=== PATIENT | female | born 1945 | race Caucasian/White ===

== ENCOUNTER 2016-11-17 17:48 | Observation (INO) | payer MEDICARE, OTHER ==
[~2016-11-17 17:48] MED LIST: ISOVUE-370 76%-LOCM 1 ML ONE
[2016-11-17 18:51] LABS: #Eosinphils 0.1 thou/uL (0.0-0.7); #Lymphocytes 0.9 thou/uL (1.20-3.40); #Monocytes 0.5 thou/uL (0.11-0.59); #Neutrophils 8.6 thou/uL (1.40-6.50); %Basophils 0.2 % (0.0-1.0); %Eosinophils 0.6 % (0.0-10.0); %Lymphocytes 8.4 % (21.0-51.0); Hematocrit 44.8 % (36.0-47.0); Mean Platelet Volume 7.3 fL (7.4-10.4); Red Blood Cell (RBC) Count 4.64 mill/uL (4.20-5.40); White Blood Cell (WBC) Count 10.1 thou/uL (4.8-10.8)
[2016-11-17 18:57] LABS: PTT 26.1 SEC (22.9-36.1); Prothrombin Time 14.2 SEC (12.0-14.7)
[2016-11-17 19:15] LABS: ALT (SGPT) 61 U/L (8-55); AST (SGOT) 67 U/L (5-34); Alkaline Phosphatase 97 U/L (40-150); Anion Gap 16 mmol/L (10-20); BUN (Urea Nitrogen) 18 mg/dL (9.8-20.1); Bilirubin, Total 1.4 mg/dL (0.2-1.2); CK (CPK) 113 U/L (29-168); Calc. Creatinine Clearance 0 mL/min (70-130); Calcium 9.8 mg/dL (7.8-10.44); Carbon Dioxide 29 mmol/L (23-31); Chloride 100 mmol/L (98-107); Estimated GFR-MDRD 61; Globulin 3.7 g/dL (2.4-3.5); Protein, Total 7.9 g/dL (6.0-8.3)
[2016-11-17] MEDS ORDERED: Acetaminophen 500 MG TAB ONE ×2 (19:21→19:22)
[2016-11-17 20:46] LABS: Bilirubin Negative (Negative); Blood, Urine Small (Negative); Glucose, Urine (Dipstick) Negative (Negative); Ketone, Urine Negative (Negative); Nitrite Negative (Negative); Protein, Urine (Dipstick) Negative (Neg-Trace); Urobilinogen 0.2 mg/dL (0.2-1.0)
[2016-11-17 20:48] LABS: Bacteria/HPF None Seen HPF (None Seen); Hyaline Casts/LPF 0-3 HYALINE CAST LPF (0-3 Hyaline); Squamous Epithelial None Seen HPF (0-3); WBC/HPF 0-3 HPF (0-3)
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
[2016-11-17] MEDS ORDERED: Ondansetron ODT 4 MG TAB PO PRN (23:05)
[2016-11-17] MEDS ORDERED: Dextrose 5% in Water 1,000 ML IV PRN (23:05)
[2016-11-17] MEDS ORDERED: Ondansetron HCl/PF 4 MG/2 ML Vial IVP PRN (23:05)
[2016-11-17] MEDS ORDERED: Dextrose 50% Abboject 50 ML SYRINGE SLOW IVP PRN (23:05)
[2016-11-17] MEDS ORDERED: traMADol HCl 50 MG TAB PO PRN ×2 (23:05)
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
[2016-11-17 23:22] LABS: Hematocrit 41.1 % (36.0-47.0)
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
[2016-11-18] MEDS: Acetaminophen 500 MG TAB PO PRN ×2 (01:40→08:49)
[2016-11-18 04:00] VITALS: BMI 18.7
[2016-11-18 05:16] LABS: #Lymphocytes 0.8 thou/uL (1.20-3.40); #Monocytes 0.4 thou/uL (0.11-0.59); #Neutrophils 4.7 thou/uL (1.40-6.50); %Basophils 0.2 % (0.0-1.0); %Eosinophils 0.6 % (0.0-10.0); %Lymphocytes 13.4 % (21.0-51.0); %Monocytes 6.3 % (0.0-10.0); Hematocrit 39.2 % (36.0-47.0); Mean Platelet Volume 7.3 fL (7.4-10.4)
[2016-11-18 05:22] LABS: Hematocrit 38.9 % (36.0-47.0)
[2016-11-18 05:45] LABS: Anion Gap 12 mmol/L (10-20); BUN (Urea Nitrogen) 15 mg/dL (9.8-20.1); Calc. Creatinine Clearance 58 mL/min (70-130); Calcium 8.9 mg/dL (7.8-10.44); Carbon Dioxide 28 mmol/L (23-31); Chloride 100 mmol/L (98-107); Estimated GFR-MDRD 73
[2016-11-18 08:49] LABS: ALT (SGPT) 48 U/L (8-55); AST (SGOT) 45 U/L (5-34); Alkaline Phosphatase 78 U/L (40-150); Bilirubin, Direct 0.7 mg/dL (0.1-0.3); Bilirubin, Total 2.3 mg/dL (0.2-1.2); Protein, Total 6.9 g/dL (6.0-8.3)
[2016-11-18] MEDS ORDERED: Levothyroxine Sodium 25 MCG TAB PO SCH (09:00)
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
[2016-11-19] MEDS: Acetaminophen 500 MG TAB PO PRN (02:59)
[2016-11-19 05:18] LABS: Hematocrit 36.9 % (36.0-47.0)
[2016-11-19] MEDS ORDERED: Levothyroxine Sodium 25 MCG TAB PO SCH (06:00)
[2016-11-19 21:02] VITALS: BP 137/68; TEMP 97.4
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
== END 2016-11-19 13:59 | disposition home or self-care (01) ==
LOC: ERS 17:48 → EDBD 17:48 → SURG B 22:00
PROVIDERS: ADMIT Surgery; ATTEND Surgery
DX: S36.031A Moderate laceration of spleen, initial encounter (principal); G89.11 Acute pain due to trauma; E03.9 Hypothyroidism, unspecified; I10 Essential (primary) hypertension; S22.080A Wedge compression fracture of T11-T12 vertebra, initial encounter for closed fracture; J98.11 Atelectasis; E27.9 Disorder of adrenal gland, unspecified; V43.52XA Car driver injured in collision with other type car in traffic accident, initial encounter; W22.11XA Striking against or struck by driver side automobile airbag, initial encounter; Z79.899 Other long term (current) drug therapy; Z82.49 Family history of ischemic heart disease and other diseases of the circulatory system
CPT/HCPCS: 70450; 71260; 72125; 74177; 80048; 80053; 80076; 82550; 85014 ×3; 85018 ×3; 85025 ×2; 85610; 85730; 97116; 97139 ×2; 97530; 97535; 99285; G0378; G8978; G8979; G8987; G8988; 36415; 81003; 81015